=== PATIENT | male | born 1990 | race African-American/Black ===

== ENCOUNTER 2024-11-01 19:34 | Emergency (ER) | payer SELFPAY ==
[~2024-11-01] VITALS: Ht 170.2 cm; Wt 81.0 kg
[2024-11-01 19:47] VITALS: BP 150/90; PULSE 120; RESP 20; TEMP 98.5; O2SAT 100
[2024-11-01] MEDS: HYDROXYZINE 25MG TABLET PO ONE (21:51)
== END 2024-11-01 22:00 | disposition home or self-care (01) ==
LOC: ER 20:46
DX: F41.1 Generalized anxiety disorder (principal); F20.9 Schizophrenia, unspecified
CPT/HCPCS: 71045; 93005; 99283